=== PATIENT | male | born 1995 | race Caucasian/White ===

== ENCOUNTER 2018-09-09 15:19 | Outpatient (REF) | payer MEDICAID, SELFPAY ==
[2018-09-09 20:41] LABS: Anion Gap 7.4 mmol/L (3-11); BUN 12 mg/dL (7-18); CO2 30.6 mmol/L (21.0-32.0); CREATININE 1.07 mg/dL (0.70-1.30); Calcium 9.9 mg/dL (8.5-10.1); Chloride 104 mmol/L (98-107); Cholesterol 162 mg/dL (50-200); Glucose 66 mg/dL (70-100); HDL Cholesterol 52 mg/dL (40-60); LDL CHOLESTEROL 97 mg/dL (<100); Potassium 4.2 mmol/L (3.5-5.1); Sodium 142 mmol/L (136-145); Triglyceride 175 mg/dL (30-150)
[2018-09-11 10:46] LABS: HIV-1/2 Ag & Ab Screen Negative (NEGAT)
[2018-09-11 11:47] LABS: Syphilis Serology (RPR) Negative (Negative)
[2018-09-11 14:35] LABS: Chlamydia Result Negative; GC Result Negative; Specimen Description URINE
== END 2018-09-09 15:39 ==
LOC: NCHCN 15:19
PROVIDERS: PCP Specialist/Technologist Athletic Trainer; Visit Provider Specialist/Technologist Athletic Trainer
DX: Z13.220 Encounter for screening for lipoid disorders (principal); Z13.228 Encounter for screening for other metabolic disorders; Z00.00 Encounter for general adult medical examination without abnormal findings; Z11.3 Encounter for screening for infections with a predominantly sexual mode of transmission; Z11.4 Encounter for screening for human immunodeficiency virus [HIV]
CPT/HCPCS: 80048; 80061; 83721; 87389; 87491; 87591; 86592

== ENCOUNTER 2022-06-04 22:41 | Emergency (ER) | payer MEDICAID, SELFPAY ==
[2022-06-04 22:44] VITALS: BP 138/81; PULSE 86; RESP 24; TEMP 36.9; O2SAT 100
--- NOTE | 2022-06-04 22:50 | ED.GENADUL_ITS ---
Discharge Plan Disposition Patient Disposition: HOME Condition: Good Discharge Details Clinical Impression: Food impaction of esophagus Primary Care Provider: Ran Mesa ED Provider: Bari Campbell Meds and New Rx's Prescriptions: No Action albuterol sulfate [ProAir HFA] 8.5 GM HFA aerosol inhaler 2 puff Inhalation Q4H PRN Qty: 1 Discharge Instructions Instructions: Food Impaction (ED) Additional Instructions: You were seen for esophageal food impaction which cleared after vomiting in the ED. We will have you follow-up with general surgery for consideration of upper endoscopy to rule out any significant pathology in your esophagus. In the meantime it is important to remember to chew your food thoroughly especially meats and to take smaller bites. Return to ED for any abdominal pain, chest pain, shortness of breath. Referrals: [facility] [Provider Group] - 2 weeks Medical Decision Making Patient presenting with esophageal food impaction present for about 3 hours now. Seems to be low in the esophagus. IV established and a milligram of glucagon given. Patient also given effervescent after the glucagon. Did not feel the impaction change. Patient given Diet Coke and asked to forcefully drop his heels and attempt to dislodge impaction. This resulted in vomiting and clearing of the impaction. Patient able to drink water without difficulty after this episode of vomiting. He was observed with no further issue and discharged with instructions to follow-up with surgery for consideration of upper endoscopy to rule out esophageal pathology though this is likely just related to not chewing his food well. Return precautions discussed. HPI General Mode of arrival: ambulatory . Date/Time Provider Initiated Documentation: 06/04/22 22:50 . Limitations to Documentation: no limitations . Information obtained by: patient . HPI Narrative: Patient presents to ED with complaint of piece of steak stuck in his esophagus with inability to take anything orally since about 7 PM this evening. Discomfort is just above the epigastric area. He has continued to drink and attempts to dislodge the steak without success. He has had previous food impaction once before that did pass on its own. Admits that he typically does not chew his food especially meat well. He denies any change in voice or difficulty breathing. Related Data Home Medications Medication Instructions Recorded Confirmed albuterol sulfate 90 mcg/actuation 2 puff inhalation Q4H PRN ##1 06/22/14 06/04/22 aerosol inhaler (ProAir HFA) Allergies Allergy/AdvReac Type Severity Reaction Status Date / Time No Known Allergies Allergy Unverified 06/04/22 22:46 General Stated Complaint: ThroatFB VICTOR HUGO: 2 Review of Systems Narrative: 02/16 Review of Systems completed and is negative except as stated above in HPI (Systems reviewed: Const, Resp, CV, GI, Neuro) PFSH Medical History No significant past medical history Surgical History No significant past surgical history Social History Smoking/Tobacco Use Status: Never Smoking risk assessment performed?: Yes Alcohol Intake: current Alcohol Intake frequency: a few times a month Drug use: Never Substance use type: does not use Do you feel safe at home: Yes Do you feel safe in your relationship?: Yes Exam Narrative Exam Narrative: Const: WDWN male in NAD. HEENT: NC/AT. Normal facial exam. Eyes: Normal conjunctiva and sclera. Neck: Supple. Trachea midline. Lungs: Normal respiratory effort. Lungs are clear. Cor: RRR without murmur/gallop. Good radial pulses. Neuro: A+O x 3. Normal speech, mentation, gait. Cranial nerves II - XII grossly intact. No gross motor or sensory deficit. Ext: No C/C/E. Skin: Warm and dry without rash. Course Vital Signs Vital signs: Vital Signs Temperature 98.4 F 06/04/22 22:44 Pulse 86 06/04/22 22:44 Respiratory Rate 24 06/04/22 22:44 Blood Pressure 138/81 06/04/22 22:44 Pulse Oximetry 100 06/04/22 22:44 Temperature 98.4 F 06/04/22 22:44 Pulse 86 06/04/22 22:44 Respiratory Rate 24 06/04/22 22:44 Blood Pressure 138/81 06/04/22 22:44 Pulse Oximetry 100 06/04/22 22:44 Pain Level 5 06/04/22 22:44
[2022-06-04] MEDS: Glucagon 1 MG VIAL IVP (23:02)
[2022-06-04] MEDS: Simethicone/Sod Bicarb/Cit Ac, 4 gram PACKET 1 PACKET PO (23:07)
[2022-06-04 23:58] VITALS: BP 104/59; PULSE 65; RESP 18; O2SAT 98
== END 2022-06-05 | disposition home or self-care (01) ==
LOC: ER 06-05 11:42
PROVIDERS: Emergency Provider Emergency Medicine; PCP Specialist/Technologist Athletic Trainer
DX: T18.128A Food in esophagus causing other injury, initial encounter (principal); X58.XXXA Exposure to other specified factors, initial encounter
CPT/HCPCS: 96374; 99284; J1610

== ENCOUNTER 2023-01-09 20:24 | Emergency (ER) | payer BC, SELFPAY ==
[2023-01-09 20:27] VITALS: BP 120/82; PULSE 60; RESP 16; TEMP 36.5; O2SAT 99
[2023-01-09 20:52] LABS: Abs Immature Grans 0.01 10^3/uL (0.0-0.06); Absolute Basophil Count 0.05 10^3/uL (0.0-0.2); Absolute Eosinophil Count 0.32 10^3/uL (0.0-0.7); Absolute Lymphocyte Count 1.81 10^3/uL (1.2-3.4); Absolute Monocyte Count 0.46 10^3/uL (0.1-0.8); Absolute Neutrophil Count 4.98 10^3/uL (1.2-6.7); Basophils % 0.7; Eosinophils % 4.2; HCT 48.1 % (40.0-50.0); HGB 16.7 g/dL (13.5-17.5); Immature Grans % 0.1; Lymphocytes % 23.7; MCH 29.1 pg (27.0-33.0); MCHC 34.7 % (32.0-36.0); MCV 84 fL (80-95); MPV 9.6 fL (8.0-11.0); Neutrophils % 65.3; Platelet Count 239 10^3/uL (130-400); RBC 5.73 10^6/uL (4.36-5.78); RDW 11.8 % (11.8-14.1); RDW-SD 35.5 fL; WBC 7.63 10^3/uL (4.4-10.8)
--- NOTE | 2023-01-09 20:58 | NUR.NOTE ---
E-Z gas effervescent granules given at approx 2039. Nursing Note:
--- NOTE | 2023-01-09 21:03 | ED.GENADUL_ITS ---
Discharge Plan Disposition Patient Disposition: Home Discharge Details Clinical Impression: Esophageal obstruction due to food impaction Primary Care Provider: Jillian Wilcox ED Provider: Bhavesh Parker Home Meds and New Rx's Prescriptions: Continued albuterol sulfate [ProAir HFA] 8.5 GM HFA aerosol inhaler 2 puff Inhalation Q4H PRN Qty: 1 Discharge Instructions Instructions: Food Impaction (ED) Additional Instructions: At this time it appears that the food impaction has passed. Please do your best to always take small bites of food and chew your food well. Please stick with a diet of soft foods for the next 24 to 48 hours as your esophagus will likely be sensitive. If you notice any worsening of your symptoms, or any new symptoms such as vomiting, diarrhea, fever, chills, shortness of breath, chest pain, numbness, weakness, or fainting , please return immediately to the emergency department for reevaluation. Please follow up with your primary care provider as soon as possible for reassessment and reevaluation. As always, it was a pleasure participating in your medical care today. Referrals: Jillian Wilcox [Primary Care Provider] - Medical Decision Making This is a very pleasant 27-year-old male with no significant past medical history except for previous food bolus impaction, who presents today for suspected food bolus impaction. Patient states that he was eating soup which was chicken and rice, and around 7 PM he had a large piece of chicken that got stuck. Since then he has been burping and spitting up small bits of rice, and has not been able to swallow or keep anything down otherwise. He denies any difficulty breathing. He states that the symptoms are identical to his last food bolus impaction. He denies any significant chest pain or shortness of breath otherwise. No choking. No other complaints at this time. Exam demonstrates a well-appearing male who does demonstrate intermittent spitting up and small amounts of vomiting. It is mostly sputum and small right chunks at this point. No large food bolus. He is unable to drink anything to keep it down. He otherwise is stable. We will give effervescent granules, monitor closely and reassess. Symptoms inconsistent at this time clinically with Boerhaave's tear Elvia-Davis tear. No blood in his vomitus. 9:05 PM Patient tolerated the effervescent granules well with no complications. He feels much better. He is able to tolerate p.o., GI cocktail and water without any difficulty. Food bolus is passed. I do feel that the patient is stable at this time. No indication for emergent imaging based on clinical exam and reassessment at this time. Patient feels well and is requesting discharge. Recommend good chewing habits at home. Discussed red flags for which to return. I have extensively reviewed the treatment plan and discharge instructions with the patient. I have addressed all patient concerns at this time. The patient was made aware of what symptoms to monitor for that would warrant a return to the emergency department. Discussed the plan with the patient, they demonstrate verbal understanding and agreement with our assessment and plan at this time. The documentation in this chart was dictated using [employer]now [employer] dictation software. Please excuse any dictation errors. HPI General Date/Time Provider Initiated Documentation: 01/09/23 20:32 . HPI Narrative: This is a very pleasant 27-year-old male with no significant past medical history except for previous food bolus impaction, who presents today for suspected food bolus impaction. Patient states that he was eating soup which was chicken and rice, and around 7 PM he had a large piece of chicken that got stuck. Since then he has been burping and spitting up small bits of rice, and has not been able to swallow or keep anything down otherwise. He denies any difficulty breathing. He states that the symptoms are identical to his last food bolus impaction. He denies any significant chest pain or shortness of breath otherwise. No choking. No other complaints at this time. Related Data Home Medications Medication Instructions Recorded Confirmed albuterol sulfate 90 mcg/actuation 2 puff inhalation Q4H PRN ##1 06/22/14 01/09/23 aerosol inhaler (ProAir HFA) Allergies Allergy/AdvReac Type Severity Reaction Status Date / Time No Known Allergies Allergy Unverified 01/09/23 20:31 General Stated Complaint: ForeignBody VICTOR HUGO: 2 Review of Systems All systems reviewed & are unremarkable except as noted in HPI and below PFSH All Active Problems (Updated 01/09/23 @ 21:07 by Bhavesh Parker DO) Esophageal obstruction due to food impaction (Acute) Medical History No significant past medical history Surgical History No significant past surgical history Social History Smoking/Tobacco Use Status: Never Smoking risk assessment performed?: Yes Alcohol Intake: current Alcohol Intake frequency: a few times a month Drug use: Never Substance use type: does not use Do you feel safe at home: Yes Do you feel safe in your relationship?: Yes Exam Narrative Exam Narrative: 1.Const: Well-nourished, Well-developed, appearing stated age 2.Eyes: PERRL, no conjunctival injection, and symmetrical lids. 3.ENT: Atraumatic external nose and ears. Moist MM. Neck: Symmetric, trachea midline, No thyromegaly. No evidence of foreign body in posterior oropharynx. 4.CVS: +S1/S2, No murmurs or gallops. Peripheral pulses 2+ and equal in all extremities. Brisk capillary refill in all extremities. 5.RESP: Unlabored respiratory effort. Clear to auscultation bilaterally. No wheezes rales or rhonchi. No subcutaneous crepitus. 6.GI: Soft, Nontender/Nondistended, No hepatosplenomegaly. No guarding or rebound. No generalized abdominal tenderness. No focal abdominal tenderness. 7.MSK: Normocephalic/Atraumatic, Extremities w/o deformity or ttp No cyanosis or clubbing, Normal movement of all extremities 8.Skin: Warm, Dry. No rashes or lesions. 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 Sensation grossly intact, no focal neurologic deficits. 10.Psych: (AAO) x3. Appropriate mood and affect Course Vital Signs Vital signs: Vital Signs Temperature 36.5 C 01/09/23 20:27 Pulse 60 01/09/23 20:27 Respiratory Rate 16 01/09/23 20:27 Blood Pressure 120/82 01/09/23 20:27 Pulse Oximetry 99 01/09/23 20:27 Temperature 36.5 C 01/09/23 20:27 Temperature Source Oral 01/09/23 20:27 Pulse 60 01/09/23 20:27 Respiratory Rate 16 01/09/23 20:27 Respiratory Effort Normal 01/09/23 20:27 Blood Pressure 120/82 01/09/23 20:27 Blood Pressure Position Sitting 01/09/23 20:27 Pulse Oximetry 99 01/09/23 20:27 Oxygen Delivery Method Room Air 01/09/23 20:27 Oxygen Flow Rate 0 01/09/23 20:27 Pain Level 4 01/09/23 20:27 Lab/Test Results Lab/Test Results: Laboratory Tests Range/Units 01/09/23 20:35 WBC (4.4-10.8) 10^3/uL 7.63 RBC (4.36-5.78) 10^6/uL 5.73 Hgb (13.5-17.5) g/dL 16.7 Hct (40.0-50.0) % 48.1 MCV (80-95) fL 84 MCH (27.0-33.0) pg 29.1 MCHC (32.0-36.0) % 34.7 RDW (11.8-14.1) % 11.8 Plt Count (130-400) 10^3/uL 239 MPV (8.0-11.0) fL 9.6 Immature Gran % 0.1 Neutrophils % 65.3 Lymphocytes % 23.7 Monocytes % 6.0 Eosinophils % 4.2 Basophils % 0.7 Nucleated RBC % (0.0-0.3) % 0.0 Absolute Neutrophils (1.2-6.7) 10^3/uL 4.98 Absolute Lymphocytes (1.2-3.4) 10^3/uL 1.81 Absolute Monocytes (0.1-0.8) 10^3/uL 0.46 Absolute Eosinophils (0.0-0.7) 10^3/uL 0.32 Absolute Basophils (0.0-0.2) 10^3/uL 0.05
[2023-01-09 21:08] LABS: ALT 15 U/L (16-63); AST 17 U/L (15-37); Albumin 4.8 g/dL (3.4-5.0); Alkaline Phosphatase 74 U/L (46-116); BUN 12 mg/dL (7-18); Bilirubin, Total 0.4 mg/dL (0.2-1.0); CREATININE 1.1 mg/dL (0.70-1.30); Calcium 9.8 mg/dL (8.5-10.1); Chloride 103 mmol/L (98-107); Estimated GFR 94.95 (mL/min/1.73m2); Glucose 101 mg/dL (74-106); Potassium 3.8 mmol/L (3.5-5.1); Sodium 140 mmol/L (136-145); Total Protein 7.8 g/dL (6.4-8.2)
[2023-01-09 21:15] VITALS: BP 109/73; PULSE 66; O2SAT 98
== END 2023-01-09 21:16 | disposition home or self-care (01) ==
LOC: ER 21:21
PROVIDERS: Emergency Provider Student in an Organized Health Care Education/Training Program; PCP Nurse Practitioner Family
DX: K22.2 Esophageal obstruction (principal); T18.128A Food in esophagus causing other injury, initial encounter; X58.XXXA Exposure to other specified factors, initial encounter
CPT/HCPCS: 36415; 80053; 99283; 85025

== ENCOUNTER 2025-07-16 17:29 | Emergency (ER) | payer BC, SELFPAY ==
[2025-07-16 17:31] VITALS: BP 138/76; PULSE 70; RESP 16; TEMP 36.8; O2SAT 97
[2025-07-16 17:43] VITALS: BP 138/76; PULSE 70; RESP 16; TEMP 36.8; O2SAT 97
[2025-07-16 18:30] VITALS: BP 135/68; PULSE 67; RESP 15; O2SAT 98
--- NOTE | 2025-07-18 08:32 | ED.GENADUL_ITS ---
Discharge Plan Disposition Patient Disposition: Home Discharge Details Clinical Impression: Food impaction of esophagus Primary Care Provider: Jillian Wilcox ED Provider: Michelle Allen Home Meds and New Rx's Prescriptions: Continued albuterol sulfate [ProAir HFA] 8.5 GM HFA aerosol inhaler 2 puff Inhalation Q4H PRN Qty: 1 Discharge Instructions Instructions: Foreign Body, Swallowed, Adult Additional Instructions: cut your food into small pieces Follow-up with surgery for endoscopy at their discretion Please return earlier should you have new or worsening complaints Referrals: Jillian Wilcox [Primary Care Provider, Medicine] Discharge Data Discharge Date/Time-TO BE ENTERED AT DEPARTURE: 07/16/25 18:31 HPI General Date/Time Provider Initiated Documentation: 07/16/25 18:17 . HPI Narrative: This 30-year-old male presents with concern for esophageal food bolus. He states that he was eating some general salads chicken and felt a piece lodged in his esophagus. He has been unable to tolerate liquids since that time. States this has happened previously x 2. States it was a rather large piece of chicken and she is unsure as to whether or not he chewed it. He denies known history of stricture denies any difficulty breathing or shortness of breath. Related Data Home Medications ?Medication ?Instructions ?Recorded ?Confirmed albuterol sulfate 90 mcg/actuation 2 puff inhalation Q 4H PRN ##1 06/22/14 07/16/25 aerosol inhaler (ProAir HFA) Allergies Allergy/AdvReac Type Severity Reaction Status Date / Time No Known Allergies Allergy Unverified 07/16/25 17:38 General Stated Complaint: GenMedical VICTOR HUGO: 3 Exam Narrative Exam Narrative: Patient is maintaining airway, he is spitting up clear liquids there is no stridor lungs are clear to auscultation he is in significant distress there is no visible foreign body. No abdominal tenderness Course Vital Signs Vital signs: Vital Signs Temperature 36.8 C 07/16/25 17:31 Pulse 70 07/16/25 17:31 Respiratory Rate 16 07/16/25 17:31 Blood Pressure 138/76 07/16/25 17:31 Pulse Oximetry 97 07/16/25 17:31 Temperature 36.8 C 07/16/25 17:43 Temperature Source Tympanic 07/16/25 17:31 Pulse 67 07/16/25 18:30 Respiratory Rate 15 07/16/25 18:30 Respiratory Effort Normal 07/16/25 17:43 Respiratory Depth Normal 07/16/25 17:43 Respiratory Pattern Normal 07/16/25 17:43 Blood Pressure 135/68 07/16/25 18:30 Blood Pressure Position Sitting 07/16/25 17:31 Pulse Oximetry 98 07/16/25 18:30 Oxygen Delivery Method Room Air 07/16/25 17:31 Oxygen Flow Rate 0 07/16/25 17:31 Pain Level 4 07/16/25 17:43 Medical Decision Making Assessment and plan: Secondary to concern for esophageal food bolus, patient was given EZ gas effervescent crystals and had resolution of food bolus. pt is now able to tolerate po and feels symptomatically improved. I will refer to surgery secondary to recurrent food impactions for possible endoscopy. return precautions reviewed. Discussed food preparation importance to prevent reoccurence. PFSH All Active Problems (Updated 07/16/25 @ 18:21 by TOYA Worley) Food impaction of esophagus (Acute) Medical History No significant past medical history Surgical History No significant past surgical history Social History Smoking/Tobacco Use Status: Never Smoking risk assessment performed?: Yes Alcohol Intake: current Alcohol Intake frequency: a few times a month Drug use: Never Substance use type: does not use Housing: house Do you feel safe at home: Yes Do you feel safe in your relationship?: Yes
== END 2025-07-16 18:31 | disposition home or self-care (01) ==
PROVIDERS: Emergency Provider Physician Assistant; PCP Nurse Practitioner Family
DX: T18.128A Food in esophagus causing other injury, initial encounter (principal)
CPT/HCPCS: 99282; 99281